=== PATIENT | female | born 2000 | race Caucasian/White ===

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

== ENCOUNTER → 2020-07-21 20:18 | Outpatient (CLI) | payer MEDICAID, SELFPAY | PROVIDERS: PCP Nurse Practitioner | DX: R63.5 Abnormal weight gain (principal); R06.83 Snoring; Z71.89 Other specified counseling | CPT/HCPCS: 95810 ==

== ENCOUNTER 2021-08-02 07:45 | Emergency (ER) | payer MEDICAID, SELFPAY ==
[2021-08-02 07:47] VITALS: BP 111/70; PULSE 116; RESP 17; TEMP 36.9; O2SAT 96; BMI 47.5
--- NOTE | 2021-08-02 09:11 | EDS_ITS ---
HPI HPI - GI History of Present Illness Chief Complaint: Nausea/Vomiting/Diarrhea Informant: patient Abdominal Pain/Flank Pain Onset: Weeks (1) Context: Gradual Onset Timing: Continuous Quality: Aching Location: Epigastric, RUQ and LUQ Worsened by: Nothing Relieved by: - (Vomiting) Nausea/Vomiting/Emesis GI Symptom: Positive for Nausea and Vomiting Onset: Weeks (1) Quality: Negative for Blood streaks, Coffee ground or Hematemesis Diarrhea/Melena/Hematochezia GI Symptom: Positive for Diarrhea Episodes: 1 Associated Symptoms Associated Symptoms: Negative for Dysuria, Frequency or Hematuria LMP: Approximately 1 week ago Narrative Narrative: Patient present with nausea and vomiting that has been constant for the past week. Patient states she is vomiting up clear and yellow emesis. Patient was r ecently admitted to [facility] where she had a gastric sleevectomy. Grandmother states that after her surgery, she had to have a repeat laparoscopy due to bleeding. She also had an endoscopy while she was there. Patient has been unable to keep anything down over the last week. Patient admits to some upper abdominal pain. Patient describes the pain as aching. Patient states pain radiates into her chest. Patient states it gets better briefly after vomiting. Patient admits to 1 episode of diarrhea over the last week. Patient denies any dysuria, hematuria, or frequency. Patient states her last menstrual period was approximately 1 week ago. [facility] Medical History (Updated 08/02/21 @ 13:[address] Jaspreet Arora, DO) Asthma GERD (gastroesophageal reflux disease) Home Medications albuterol sulfate 90 mcg/actuation aerosol inhaler (Ventolin HFA) 1 - 2 puff inhalation Q6H PRN PRN Asthma 12/06/14 [History Last Taken Unknown] Ziprasidone Hcl 20 mg PO DAILY 10/23/19 [History Last Taken Unknown] diazepam 2 mg tablet 2 mg PO TID PRN PRN Vertigo #10 tabs 10/23/19 [Rx Last Taken Unknown] escitalopram oxalate 20 mg tablet 20 mg PO DAILY 10/23/19 [History Last Taken Unknown] etonogestrel 0.12 mg-ethinyl estradiol 0.015 mg/24 hr vaginal ring 1 ea VG .[id number] 10/23/19 [History Last Taken Unknown] fluticasone propionate 50 mcg/actuation nasal spray,suspension 9.9 ml NS DAILY 10/23/19 [History Last Taken Unknown] hydroxyzine HCl 25 mg tablet 25 mg PO DAILY 10/23/19 [History Last Taken Unknown] naproxen 500 mg tablet 500 mg PO BID PRN Pain Or Fever 10/23/19 [History Last Taken Unknown] omeprazole 20 mg delayed release,disintegrating tablet 20 mg PO DAILY 10/23/19 [History Last Taken Unknown] topiramate 50 mg tablet 50 mg PO BID 10/23/19 [History Last Taken Unknown] ondansetron 4 mg disintegrating tablet 2 tab PO Q8H PRN PRN Nausea 08/02/21 [History Last Taken Unknown] promethazine 25 mg rectal suppository (Promethegan) 25 mg RECTAL Q6H PRN PRN Nausea ##6 08/02/21 [Rx Last Taken Unknown] promethazine 25 mg tablet 25 mg PO Q6H PRN PRN Nausea #10 TABLETS 08/02/21 [Rx Last Taken Unknown] Allergy/AdvReac Type Severity Reaction Status Date / Time No Known Allergies Allergy Verified 08/02/21 07:46 Surgical History Hx of gastric bypass Social History Smoking Status: Never smoker ROS ROS ED Constitutional Constitutional ED: Reports chills and subjective; Denies fever(s) Eyes Eyes: Denies blurry vision or change in vision ENT ENT ED: Denies rhinorrhea or sore throat Cardiovascular Cardiovascular: Reports chest pain; Denies palpitations Respiratory/Chest Respiratory/Chest: Reports dyspnea; Denies cough Gastrointestinal Gastrointestinal: Reports abdominal pain, diarrhea, nausea and vomiting Genitourinary Genitourinary ED: Denies dysuria or hematuria Musculoskeletal Musculoskeletal: Denies back pain or neck pain Integumentary Denies abscess or rash Neurologic Neurologic: Denies headache(s) or weakness Allergic/Immunologic Allergic/Immunologic ED: Denies mouth swelling or urticaria EXAM Physical Exam Const Vital Signs: 08/02/21 07:47 08/02/21 12:38 Temperature 98.4 F 97.3 F L Temperature Source Temporal Temporal Pulse Rate 116 H 57 L Respiratory Rate 17 16 Blood Pressure 111/70 117/63 Blood Pressure Mean 83 81 Pulse Ox 96 96 Oxygen Delivery Method Room Air Room Air Positive well nourished, well developed and obese General Appearance ED: well developed and NAD Nutritional Appearance: obese HEENT Reports moist mucous membranes Neck supple and no JVD Resp normal respiratory effort and clear to auscultation bilaterally Cardio regular rate, regular rhythm and no murmurs GI normal to inspection, nondistended, normoactive bowel sounds and non-tender Palpation: soft Extremity normal to inspection General Extremety ED: Negative for edema or tenderness General Extremity: Negative for edema Neuro oriented x3, CN's II-XII intact bilaterally and no sensory deficits noted Sensorium / Orientation: alert Motor Exam: strength 5/5 throughout Psych mental status grossly normal Skin no rashes or lesions noted MDM MDM MDM Narrative Medical decision making narrative: Patient was given IV fluids, morphine, and Zofran initially. Patient had minimal relief of her nausea with the Zofran. Patient was given a dose of Phenergan. CBC was within normal limits. Comprehensive metabolic profile shows a potassium of 2.9, CO2 of 16, and anion gap of 18. Lipase was normal. Because of the anion gap acidosis, serum lactate was ordered and was normal. Serum hCG was negative. Urinalysis does not show any evidence of urinary tract infection. CT scan of the abdomen pelvis was obtained. There is diffuse fatty infiltration of the liver. There is a 2.1 x 1.2 cm hypodense nodule in the peripheral anterior medial aspect of the spleen. This may either be posttraumatic changes versus resolving hematoma. There is no acute hemorrhage noted. Patient and family were advised of the findings. Patient is feeling better after the Phenergan. Patient was given a prescription for Phenergan. Patient was instructed to start with small amounts of fluids and advance her diet as tolerated. Patient understood and was agreeable with the plan. All questions were answered. Lab Data Attestation: I reviewed the patient's lab results. Labs: Laboratory Results - last 24 hr 08/02/21 08/02/21 08/02/21 08:30 08:30 08:30 WBC 5.4 RBC 4.88 Hgb 13.2 Hct 39.8 MCV 81.6 MCH 27.0 MCHC 33.2 RDW Std Deviation 43.8 RDW Coeff of Sharona 14.9 H Plt Count 218 MPV 12.8 H Immature Gran % (Auto) 0.400 Neut % (Auto) 79.6 H Lymph % (Auto) 12.4 L [place] % (Auto) 6.6 Eos % (Auto) 0.4 Baso % (Auto) 0.6 Absolute Neuts (auto) 4.3 Absolute Lymphs (auto) 0.67 L Nucleated RBC % 0 Sodium 138 Potassium 2.9 L Chloride 104 Carbon Dioxide 16.0 L Anion Gap 18 H BUN 7 Creatinine 0.60 Estim Creat Clear Calc 144.23 Est GFR (MDRD) Af Amer 163 Est GFR (MDRD) Non-Af 135 BUN/Creatinine Ratio 11.7 Glucose 97 Lactic Acid Calcium 9.4 Total Bilirubin 0.80 AST 29 ALT 48 Alkaline Phosphatase 74 Total Protein 7.7 Albumin 3.7 Globulin 4.0 Albumin/Globulin Ratio 0.9 Lipase 288 Serum , Qual NEGATIVE Urine Color Urine Clarity Urine pH Ur Specific [place] Urine Protein Urine Glucose (UA) Urine Ketones Urine Occult Blood Urine Nitrite Urine Bilirubin Urine Urobilinogen Ur Leukocyte Esterase Urine RBC Urine WBC Ur Squamous Epith Cells Urine Bacteria Urine Mucus 08/02/21 08/02/21 09:58 10:25 WBC RBC Hgb Hct MCV MCH MCHC RDW Std Deviation RDW Coeff of Sharona Plt Count MPV Immature Gran % (Auto) Neut % (Auto) Lymph % (Auto) [place] % (Auto) Eos % (Auto) Baso % (Auto) Absolute Neuts (auto) Absolute Lymphs (auto) Nucleated RBC % Sodium Potassium Chloride Carbon Dioxide Anion Gap BUN Creatinine Estim Creat Clear Calc Est GFR (MDRD) Af Amer Est GFR (MDRD) Non-Af BUN/Creatinine Ratio Glucose Lactic Acid 1.1 Calcium Total Bilirubin AST ALT Alkaline Phosphatase Total Protein Albumin Globulin Albumin/Globulin Ratio Lipase Serum , Qual Urine Color Yellow Urine Clarity Clear Urine pH 6.0 Ur Specific [place] 1.025 Urine Protein 30 H Urine Glucose (UA) Normal Urine Ketones 150 A* Urine Occult Blood 150 H Urine Nitrite Negative Urine Bilirubin Negative Urine Urobilinogen 4 H Ur Leukocyte Esterase 25 H Urine RBC 5-10 SEEN Urine WBC 5-10 SEEN Ur Squamous Epith Cells 0 SEEN Urine Bacteria 1+ Urine Mucus 0 SEEN Radiography Diagnostic Testing: Clinical Impression(s) from Imaging Studies Abdomen/Pelvis CT 08/02/21 09:17 IMPRESSION: The patient is status post subtotal gastrectomy. Diffuse fatty infiltration of the liver. 2.1 cm x 1.2 cm hypodense nodule in the peripheral anterior medial aspect of the spleen. This may represent either posttraumatic changes versus resolving hematoma. Electronically Signed: Gabe Phelps MD at 12:32 EDT , Discharge Plan Triage Chief Complaint: Nausea/Vomiting/Diarrhea ED Provider: Jaspreet Arora Dx/Rx/DC Orders Clinical Impression: Abdominal pain, Nausea & vomiting Instructions: ED Abdominal Pain Unkn Cause Fem, ED Vomiting (Adult) Prescriptions: New promethazine [Promethegan] 25 MG suppository 25 mg RECTAL Q6H PRN PRN (Reason: Nausea) Qty: 6 0RF promethazine [promethazine] 25 MG tablet 25 mg PO Q6H PRN PRN (Reason: Nausea) Qty: 10 0RF No Action albuterol sulfate [Ventolin HFA] 1 INHALER inhaler 1 - 2 puff inhalation Q6H PRN PRN (Reason: Asthma) hydroxyzine HCl 25 MG tablet 25 mg PO DAILY fluticasone propionate 9.9 ML spray,suspension 9.9 ml NS DAILY etonogestrel-ethinyl estradiol 1 EACH ring 1 ea VG .[id number] escitalopram oxalate 20 MG tablet 20 mg PO DAILY topiramate 50 MG tablet 50 mg PO BID omeprazole 20 MG tablet,disintegrat, delay rel 20 mg PO DAILY Ziprasidone Hcl 20 MG capsule 20 mg PO DAILY naproxen 500 MG tablet 500 mg PO BID PRN (Reason: Pain Or Fever) diazepam 2 MG tablet 2 mg PO TID PRN PRN (Reason: Vertigo) Qty: 10 0RF ondansetron 4 mg tablet,disintegrating 2 tab PO Q8H PRN PRN (Reason: Nausea) Primary Care Provider: Care Physician,No Primary Referrals: Care Physician,No Primary [Primary Care Provider] - Doctor,Your [STAFF PHYSICIAN] - 3-5 Days Disposition Disposition: Home, Self Care
--- NOTE | 2021-08-02 09:17 | CT_ITS ---
STUDY: CT ABDOMEN AND PELVIS WITH CONTRAST REASON FOR EXAM: Female, 21 years old. Abdominal pain -- IV PO Contrast. Recent gastric sleeve. Patient is not able to eat. Vomiting. RADIATION DOSAGE (If Supplied By Facility): CTDIvol = ( 17.07 ) mGy, DLP = ( 1342.79 ) mGycm TECHNIQUE: Transaxial images were obtained from the dome of the diaphragm to the symphysis pubis without oral contrast. Oral and amp; IV Gastrografin and amp; 100mL Isovue-300 was administered. Sagittal and coronal images were reconstructed. Individualized dose optimization techniques were used for this CT. COMPARISON: None. FINDINGS: The visualized lung bases are unremarkable. The visualized portions of the heart are within normal limits. There is decreased attenuation of the liver consistent with steatosis. Normal gallbladder and extrahepatic biliary system. Borderline splenomegaly. There is a 2.1 cm x 1.2 cm hypodense nodule in the peripheral anterior medial aspect of the spleen. This may represent either an old injury or resolving hematoma. Normal pancreas. Normal bilateral adrenal glands. Normal right kidney. Normal left kidney. The patient is status post subtotal gastrectomy. Postoperative changes are seen. Normal small intestine. There are scattered colonic diverticula consistent with diverticulosis. There is a moderate amount of fecal material in the colon. There is non-visualization of the appendix. Normal abdominal aorta. Normal inferior vena cava. Normal retroperitoneum. Normal urinary bladder. Normal abdominal wall. Normal osseous structures. CT/Abdomen/Pelvis WITH Contrast IMPRESSION: The patient is status post subtotal gastrectomy. Diffuse fatty infiltration of the liver. 2.1 cm x 1.2 cm hypodense nodule in the peripheral anterior medial aspect of the spleen. This may represent either posttraumatic changes versus resolving hematoma. Electronically Signed: Gabe Phelps MD at 12:32 EDT ,
[2021-08-02] MEDS: Ondansetron 4 MG/2 ML Vial IV (09:37)
[2021-08-02] MEDS: Morphine 4 MG/ML Syringe IV (09:37)
[2021-08-02] MEDS: 0.9% Normal Saline 1,000 ML 1000 ML IV (09:37)
[2021-08-02 09:52] LABS: Absolute Lymphocyte Count 0.67 X10^3/uL (0.83-4.51); Absolute Neutrophil Count 4.3 X10^3/uL (2.0-7.7); Basophil# 0.03 X10^3/uL; Basophil% 0.6 % (0-1); Eosinophil# 0.02 X10^3/uL; Eosinophils% 0.4 % (0-5); Hematocrit 39.8 % (37-47); Hemoglobin 13.2 g/dL (12.0-15.0); Lymphocyte # 0.67 X10^3/ul (0.83-4.51); Lymphocyte % 12.4 % (19-41); Mean Corp Hgb Conc 33.2 g/dL (32-36); Mean Corpuscular Volume 81.6 fL (81-99); Mean Platelet Vol. 12.8 fl (6.2-12.0); Monocyte# 0.36 X10^3/uL; Monocyte% 6.6 % (0-10); NRBC Flagged by Analyzer 0 % (0-5); Neutrophil # 4.32 X10^3/uL (2.7-7.7); Neutrophil % 79.6 % (47-70); Platelet Count 218 K/mm3 (150-450); RBC Distribution Width CV 14.9 % (11.6-14.6); RBC Distribution Width SD 43.8 fl (35.1-43.9); Red Blood Count 4.88 M/mm3 (4.2-5.4); White Blood Count 5.4 K/mm3 (4.4-11.0)
[2021-08-02 10:03] LABS: Mucous, Urine 0 SEEN /hpf (<or=2+); Squamous Epithelial Cells - UA 0 SEEN /hpf (5-10)
[2021-08-02 10:04] LABS: Glucose, Dipstick Normal (Normal); Leukocyte Esterase-Dipstick 25 /ul (Negative); Nitrite-Dipstick Negative (Negative); Occult Blood-Urine 150 /ul (Negative); Protein-Dipstick 30 mg/dl (Negative); Specific Gravity, Urine 1.025 (1.002-1.030); Urine Bilirubin Dipstick Negative (Negative); Urine Clarity Clear (Clear); Urine Urobilinogen 4 mg/dl (Normal)
[2021-08-02 10:06] LABS: Ketone-Dipstick 150 mg/dl (Negative)
[2021-08-02 10:07] LABS: Internal QC Validated? YES +Cl - CLEAR BKGD; Pregnancy, Serum, hCG Quali. NEGATIVE Negative
[2021-08-02 10:07] LABS: Color, Urine Yellow (Yellow)
[2021-08-02 10:09] LABS: Bacteria 1+ /hpf (None Seen); Red Blood Cells-Urine 5-10 SEEN /hpf (0-5); White Blood Cells 5-10 SEEN /hpf (0-5)
[2021-08-02 10:11] LABS: ALB/GLOB Ratio 0.9 RATIO (0.9-2.4); AST(SGOT) 29 U/L (15-37); Alanine Aminotransfer ALT/SGPT 48 U/L (13-56); Albumin, Serum 3.7 g/dL (3.2-5.0); Alkaline Phosphatase 74 U/L (45-117); Anion Gap 18 (5-15); BUN 7 mg/dL (7-18); BUN/Creat Ratio 11.7 RATIO (10-20); Calcium,Total 9.4 mg/dL (8.5-10.1); Chloride 104 mmol/L (98-107); EST Glomerular Filtration Rate 135 mL/min (>60); Est Glom Filt Rate - Afr Amer 163 mL/min (>60); Estimated Creatinine Clearance 144.23 ml/min; Glucose 97 mg/dL (74-106); Lipase 288 U/L (73-393); Potassium 2.9 mmol/L (3.5-5.1); Protein, Total 7.7 g/dL (6.4-8.2); Sodium Level 138 mmol/L (136-145)
[2021-08-02] MEDS: proMETHazine 25 MG/ML Syringe 6.25 MG IM (10:41)
[2021-08-02 11:10] LABS: Lactic Acid 1.1 mmol/L (0.4-1.9)
[2021-08-02 12:38] VITALS: BP 117/63; PULSE 57; RESP 16; TEMP 36.3; O2SAT 96
[2021-08-02] MEDS: Potassium Chloride Oral Tablet 20 MEQ 40 MEQ PO (13:55)
--- NOTE | 2021-08-02 14:12 | ED.RN ---
disolved K+ in juice d/t pt unable to take large pills.
== END 2021-08-02 14:11 | disposition home or self-care (01) ==
PROVIDERS: Emergency Provider Emergency Medicine; Visit Provider Emergency Medicine
DX: R11.2 Nausea with vomiting, unspecified (principal); Z68.42 Body mass index [BMI] 45.0-49.9, adult; K76.0 Fatty (change of) liver, not elsewhere classified; R19.7 Diarrhea, unspecified; K21.9 Gastro-esophageal reflux disease without esophagitis; J45.909 Unspecified asthma, uncomplicated; Z98.84 Bariatric surgery status; E66.9 Obesity, unspecified; D73.89 Other diseases of spleen; R10.10 Upper abdominal pain, unspecified
CPT/HCPCS: 74177; 80053; 81001; 83605; 83690; 84703; 85025; 96361; 96372; 96374; 96375; 99284; J7030; Q9967; A4216; J2405

== ENCOUNTER 2021-08-05 20:29 | Emergency (ER) | payer MEDICAID, SELFPAY ==
[2021-08-05 20:29] VITALS: BP 164/88; PULSE 117; RESP 16; TEMP 36.6; O2SAT 100; BMI 47.0
[2021-08-05] MEDS: 0.9% Normal Saline 1,000 ML 1000 ML IV (20:55)
[2021-08-05] MEDS: Metoclopramide 10 MG/2 ML Vial IV (20:56)
[2021-08-05] MEDS: DiphenhydrAMINE 50 MG/ML Syringe 25 MG IV (20:57)
--- NOTE | 2021-08-05 20:57 | ED.VIS.GI ---
HPI HPI - GI History of Present Illness Chief Complaint: Nausea/Vomiting/Diarrhea Detail of Chief Complaint: Nausea and vomiting for 2 weeks Informant: patient and parent Abdominal Pain/Flank Pain Onset: Weeks (2 weeks) Context: Sudden Onset Timing: Continuous (Abdominal pain has been continuous) Quality: Aching and Burning Location: Epigastric Current Severity: Mild Maximum Severity: Severe Worsened by: Food (Solid or liquid) Relieved by: Nothing; Not Relieved By Antacids or Food Nausea/Vomiting/Emesis GI Symptom: Positive for Nausea and Vomiting (States she vomits every 1/2 hour to 1 hour.) Onset: Weeks (2 weeks) Quality: Positive for Nonbilious; Negative for Blood streaks, Coffee ground or Hematemesis Severity: Severe Diarrhea/Melena/Hematochezia GI Symptom: Positive for Diarrhea; Negative for Melena or Hematochezia Onset: Weeks (Approximately 2 weeks) Stool Quality: Positive for Mucous Severity: Moderate Associated Symptoms Associated Symptoms: Positive for - (Dark and decreased urine output); Negative for Dysuria, Frequency, Hematuria or Urgency Narrative Narrative: 21Patient is a-year-old female who had a sleeve procedure done. She had postop complications due to pneumoperitoneum requiring emergent surgery. She was subsequently discharged to home once stable. She developed nausea and vomiting. She was admitted on the and discharged on the at [facility] where she had the original procedure. Since she has been home she has been vomiting quite frequently and is also had mushy stool with mucus. There is no family history of ulcerative colitis or Crohn's. Patient does have a history of irritable bowel syndrome. The doctors at [facility] thinks she is having an adverse reaction to the surgery and sleeve. [facility] Medical History Asthma GERD (gastroesophageal reflux disease) Home Medications albuterol sulfate 90 mcg/actuation aerosol inhaler (Ventolin HFA) 1 - 2 puff inhalation Q6H PRN PRN Asthma 12/06/14 [History Last Taken Unknown] Ziprasidone Hcl 20 mg PO DAILY 10/23/19 [History Last Taken Unknown] diazepam 2 mg tablet 2 mg PO TID PRN PRN Vertigo #10 tabs 10/23/19 [Rx Last Taken Unknown] escitalopram oxalate 20 mg tablet 20 mg PO DAILY 10/23/19 [History Last Taken Unknown] etonogestrel 0.12 mg-ethinyl estradiol 0.015 mg/24 hr vaginal ring 1 ea VG .[id number] 10/23/19 [History Last Taken Unknown] fluticasone propionate 50 mcg/actuation nasal spray,suspension 9.9 ml NS DAILY 10/23/19 [History Last Taken Unknown] hydroxyzine HCl 25 mg tablet 25 mg PO DAILY 10/23/19 [History Last Taken Unknown] naproxen 500 mg tablet 500 mg PO BID PRN Pain Or Fever 10/23/19 [History Last Taken Unknown] omeprazole 20 mg delayed release,disintegrating tablet 20 mg PO DAILY 10/23/19 [History Last Taken Unknown] topiramate 50 mg tablet 50 mg PO BID 10/23/19 [History Last Taken Unknown] ondansetron 4 mg disintegrating tablet 2 tab PO Q8H PRN PRN Nausea 08/02/21 [History Last Taken Unknown] promethazine 25 mg rectal suppository (Promethegan) 25 mg RECTAL Q6H PRN PRN Nausea ##6 08/02/21 [Rx Last Taken Unknown] promethazine 25 mg tablet 25 mg PO Q6H PRN PRN Nausea #10 TABLETS 08/02/21 [Rx Last Taken Unknown] hydrocodone-acetaminophen 5-325mg 5mg-325mg 1 tab PO Q6H PRN PRN Pain 3 days #12 TABLETS 08/05/21 [Rx Last Taken Unknown] metoclopramide HCl 10 mg tablet (Reglan) 10 mg PO Q6H PRN nausea and vomiting #20 tabs 08/05/21 [Rx Last Taken Unknown] Allergy/AdvReac Type Severity Reaction Status Date / Time No Known Allergies Allergy Verified 08/05/21 20:31 Surgical History Hx of gastric bypass Social History (Updated 08/05/21 @ 21:[address] Trevor Bravo MD) household members: significant other Smoking Status: Never smoker substance use type: does not use ROS ROS ED Constitutional Constitutional ED: Reports weight loss; Denies chills, fever(s), subjective or sweats ENT ENT ED: Denies ear pain, rhinorrhea or sore throat Cardiovascular Cardiovascular: Denies chest pain, orthopnea or palpitations Respiratory/Chest Respiratory/Chest: Denies cough, dyspnea, dyspnea on exertion or orthopnea Gastrointestinal Gastrointestinal: Reports abdominal pain, diarrhea, nausea and vomiting; Denies constipation or melena Genitourinary Genitourinary ED: Reports other Details: Decreased urine output and darker colored urine ; Denies dysuria, hematuria or urinary frequency Musculoskeletal Musculoskeletal: Denies arthralgias, back pain, myalgias or neck pain Integumentary Denies abscess, Abrasions or rash Neurologic Neurologic: Denies headache(s), paresthesias or weakness Psychiatric Psychiatric: Reports anxiety Endocrine Endocrinology: Denies polydipsia, polyphagia or polyuria Hematologic/Lymphatic Hematologic/Lymphatic: Denies easy bleeding, easy bruising or lymphadenopathy EXAM Physical Exam Const Vital Signs: 08/05/21 20:29 Temperature 97.8 F Temperature Source Temporal Pulse Rate 117 H Respiratory Rate 16 Blood Pressure 164/88 H Blood Pressure Mean 113 Pulse Ox 100 Oxygen Delivery Method Room Air Positive well nourished, well developed and obese Constitutional Narrative: Patient is peers ill but not toxic. General Appearance ED: well developed; Negative for NAD or pallor Nutritional Appearance: obese HEENT Reports TM's clear and dry mucous membranes HEENT Narrative: Nares patent. normocephalic and atraumatic Tympanic Membrane ED: Yes TM's clear Mouth ED: Yes dry mucous membranes Mouth: dry mucous membranes Eyes PERRL and EOMs intact bilaterally Eyes Narrative: Sclera is anicteric. General Eye ED: Negative for pale conjunctiva Neck no lymphadenopathy, supple and no JVD Resp normal respiratory effort and clear to auscultation bilaterally Cardio regular rhythm, S1 normal heart sound, S2 normal heart sound and no murmurs Rate: tachycardic GI non-distended and no masses; Negative for non-tender Inspection: Negative for abdominal distention Auscultation: hypoactive bowel sounds Palpation: soft and tender epigastric; Negative for guarding, rigid, hepatomegaly or splenomegaly Narrative: Negative clinical Leyva sign Back/Spine no CVA tenderness Cervical Spine: cervical spine tenderness Thoracic Spine / Upper Back: thoracic spinal tenderness Lumbar Spine / Lower Back: lumbar spinal tenderness Neuro CN's II-XII intact bilaterally, moves all extremities and no sensory deficits noted Sensorium / Orientation: alert Motor Exam: strength 5/5 throughout Psych Psych Narrative: Mood is flat. She is soft-spoken. Speaks slowly. Skin no wounds Skin Narrative: Port sites are healing without evidence of infection General Skin Exam: Negative for jaundice or pallor Lesions: no lesions Rashes: no rashes MDM MDM MDM Narrative Medical decision making narrative: Patient presents with persistent nausea vomiting diarrhea. Will obtain electrolyte panel to assess electrolytes, CO2 anion gap and renal function. Because she has history of GI bleed and has been anemic requiring transfusion will obtain CBC to assess H&H as well as white count. Lab Data Attestation: I reviewed the patient's lab results. Lab results narrative: CBC is unremarkable. Comprehensive metabolic panel reveals an anion gap acidosis. Potassium is 3.0 which is due to her diarrhea. AST and ALT are slightly elevated 46 and 86 respectively. Since patient is probably ketotic contributing to her abdominal pain D5 half-normal was ordered.. Labs: Laboratory Results - last 24 hr 08/05/21 08/05/21 21:00 21:00 WBC 6.1 RBC 5.17 Hgb 13.9 Hct 42.1 MCV 81.4 MCH 26.9 L MCHC 33.0 RDW Std Deviation 42.5 RDW Coeff of Sharona 14.6 Plt Count 233 MPV 12.0 Immature Gran % (Auto) 0.200 Neut % (Auto) 78.6 H Lymph % (Auto) 12.8 L [place] % (Auto) 7.4 Eos % (Auto) 0.3 Baso % (Auto) 0.7 Absolute Neuts (auto) 4.8 Absolute Lymphs (auto) 0.78 L Nucleated RBC % 0 Sodium 134 L Potassium 3.0 L Chloride 100 Carbon Dioxide 17.0 L Anion Gap 17 H BUN 7 Creatinine 0.67 Estim Creat Clear Calc 129.16 Est GFR (MDRD) Af Amer 142 Est GFR (MDRD) Non-Af 117 BUN/Creatinine Ratio 10.4 Glucose 95 Calcium 9.9 Total Bilirubin 1.10 H AST 46 H ALT 86 H Alkaline Phosphatase 88 Total Protein 8.3 H Albumin 4.1 Globulin 4.2 Albumin/Globulin Ratio 1.0 Discharge Plan Triage Chief Complaint: Nausea/Vomiting/Diarrhea ED Provider: Trevor Bravo Dx/Rx/DC Orders Clinical Impression: Nausea & vomiting, Abdominal pain Instructions: ED Vomiting (Adult) Prescriptions: New metoclopramide HCl [Reglan] 10 mg tablet 10 mg PO Q6H PRN (Reason: nausea and vomiting) Qty: 20 0RF hydrocodone-acetaminophen [hydrocodone-acetaminophen] 5-325 mg tablet 1 tab PO Q6H PRN PRN (Reason: Pain) 3 Days Qty: 12 0RF No Action albuterol sulfate [Ventolin HFA] 1 INHALER inhaler 1 - 2 puff inhalation Q6H PRN PRN (Reason: Asthma) hydroxyzine HCl 25 MG tablet 25 mg PO DAILY fluticasone propionate 9.9 ML spray,suspension 9.9 ml NS DAILY etonogestrel-ethinyl estradiol 1 EACH ring 1 ea VG .[id number] escitalopram oxalate 20 MG tablet 20 mg PO DAILY topiramate 50 MG tablet 50 mg PO BID omeprazole 20 MG tablet,disintegrat, delay rel 20 mg PO DAILY Ziprasidone Hcl 20 MG capsule 20 mg PO DAILY naproxen 500 MG tablet 500 mg PO BID PRN (Reason: Pain Or Fever) diazepam 2 MG tablet 2 mg PO TID PRN PRN (Reason: Vertigo) Qty: 10 0RF ondansetron 4 mg tablet,disintegrating 2 tab PO Q8H PRN PRN (Reason: Nausea) promethazine [Promethegan] 25 MG suppository 25 mg RECTAL Q6H PRN PRN (Reason: Nausea) Qty: 6 0RF promethazine [promethazine] 25 MG tablet 25 mg PO Q6H PRN PRN (Reason: Nausea) Qty: 10 0RF Primary Care Provider: Care Physician,No Primary Referrals: Care Physician,No Primary [Primary Care Provider] - Activity Restrictions/Additional Instructions: You need to call your doctor in the morning and let them know that you continue to feel poorly and vomit. Disposition Disposition: Home, Self Care Discharge Date/Time: 08/06/21 00:37
[2021-08-05 21:05] LABS: Absolute Lymphocyte Count 0.78 X10^3/uL (0.83-4.51); Absolute Neutrophil Count 4.8 X10^3/uL (2.0-7.7); Basophil# 0.04 X10^3/uL; Basophil% 0.7 % (0-1); Eosinophil# 0.02 X10^3/uL; Eosinophils% 0.3 % (0-5); Hematocrit 42.1 % (37-47); Hemoglobin 13.9 g/dL (12.0-15.0); Lymphocyte # 0.78 X10^3/ul (0.83-4.51); Lymphocyte % 12.8 % (19-41); Mean Corpuscular Hgb 26.9 pg (27.0-32.0); Mean Corpuscular Volume 81.4 fL (81-99); Monocyte# 0.45 X10^3/uL; Monocyte% 7.4 % (0-10); NRBC Flagged by Analyzer 0 % (0-5); Neutrophil # 4.79 X10^3/uL (2.7-7.7); Neutrophil % 78.6 % (47-70); Platelet Count 233 K/mm3 (150-450); RBC Distribution Width CV 14.6 % (11.6-14.6); RBC Distribution Width SD 42.5 fl (35.1-43.9); Red Blood Count 5.17 M/mm3 (4.2-5.4); White Blood Count 6.1 K/mm3 (4.4-11.0)
[2021-08-05 21:25] LABS: AST(SGOT) 46 U/L (15-37); Alanine Aminotransfer ALT/SGPT 86 U/L (13-56); Albumin, Serum 4.1 g/dL (3.2-5.0); Alkaline Phosphatase 88 U/L (45-117); Anion Gap 17 (5-15); BUN 7 mg/dL (7-18); BUN/Creat Ratio 10.4 RATIO (10-20); Calcium,Total 9.9 mg/dL (8.5-10.1); Chloride 100 mmol/L (98-107); Creatinine, Serum 0.67 mg/dL (0.55-1.02); EST Glomerular Filtration Rate 117 mL/min (>60); Est Glom Filt Rate - Afr Amer 142 mL/min (>60); Estimated Creatinine Clearance 129.16 ml/min; Globulin 4.2 g/dL (2.2-4.2); Glucose 95 mg/dL (74-106); Protein, Total 8.3 g/dL (6.4-8.2); Sodium Level 134 mmol/L (136-145)
[2021-08-05] MEDS: Dext 5%-0.45% NS 1,000 ML 999 ML IV (22:14)
[2021-08-05 22:29] VITALS: BP 140/60; PULSE 98; RESP 18
[2021-08-06] MEDS: Ketorolac 30 MG/ML Syringe IV (00:07)
== END 2021-08-06 00:37 | disposition home or self-care (01) ==
PROVIDERS: Emergency Provider Emergency Medicine; Visit Provider Emergency Medicine
DX: R11.2 Nausea with vomiting, unspecified (principal); Z68.42 Body mass index [BMI] 45.0-49.9, adult; R10.9 Unspecified abdominal pain; D64.9 Anemia, unspecified; R19.7 Diarrhea, unspecified; K21.9 Gastro-esophageal reflux disease without esophagitis; J45.909 Unspecified asthma, uncomplicated; Z79.899 Other long term (current) drug therapy; K58.9 Irritable bowel syndrome, unspecified; Z98.84 Bariatric surgery status; E66.9 Obesity, unspecified
CPT/HCPCS: 80053; 85025; 96361; 96365; 96366; 96375; 99282; J7030; A4216; J7799

== ENCOUNTER 2022-04-22 06:12 | Emergency (ER) | payer MEDICAID, SELFPAY ==
[2022-04-22 06:13] VITALS: BP 125/82; PULSE 93; RESP 14; TEMP 36.6; O2SAT 100; BMI 39.4
--- NOTE | 2022-04-22 06:28 | CT_ITS ---
HISTORY: Mid abdomen pain, gastric bypass 06/25/2021. TECHNIQUE: Helically acquired images were obtained of the abdomen and pelvis after the intravenous administration of 100 mL Isovue-370 . Oral Gastrografin also administered. A radiation dose optimization technique was used for this scan. 457 images. COMPARISON: 08/02/2021. FINDINGS: LOWER CHEST: Lung bases clear. BOWEL: Gastric postoperative change. Bowel including appendix nondilated. No focal pericolonic inflammatory change observed. PERITONEUM: No significant ascites. LIVER: No enhancing mass. GALLBLADDER/BILIARY TREE: Gallbladder present. SPLEEN: Small peripheral splenic hypodensity again seen, possible old infarct. PANCREAS/KIDNEYS/ADRENAL GLANDS: Unremarkable. VESSELS: Abdominal aorta nondilated. PELVIC ORGANS: 3.4 x 3.7 cm left ovarian cyst. BONES: Intact. CT/Abdomen/Pelvis WITH Contrast IMPRESSION: No acute abnormality identified. Gastric postoperative change. Stable small splenic lesion. Small left ovarian cyst. Electronically Signed: Fani Rasmussen MD at 8:23 EDT ,
--- NOTE | 2022-04-22 06:29 | EDS_ITS ---
HPI HPI - GI History of Present Illness Chief Complaint: Abd Pain Detail of Chief Complaint: Abdominal pain Informant: patient Narrative Narrative: Patient presents to the emergency department with abdominal pain that she has had off and on for months. Patient gives history of a gastric sleeve surgery in June 2021. Patient for last several months has had intermittent pains in the right upper quadrant as well is the left lower quadrant at times. Initially the pain would last 10 to 15 minutes but it seems like the pain is lasting longer longer. Patient had recent ultrasound of the gallbladder that was normal in March at [facility] per family members. Patient also has been seen by wildlife biology technician. It was thought that she may have irritable bowel syndrome. Patient has lost about 120 pounds since her surgery. Pain typically comes on about 2 hours after eating. Patient states that she ate biscuits and gravy this morning and about 2 hours later started having pain. Currently her pain is resolved. She had no fever. She denies vomiting or diarrhea. Patient denies urinary symptoms. [facility] Medical History Asthma GERD (gastroesophageal reflux disease) Home Medications albuterol sulfate 90 mcg/actuation aerosol inhaler (Ventolin HFA) 1 - 2 puff inhalation Q6H PRN PRN Asthma 12/06/14 [History Last Taken Unknown] Ziprasidone Hcl 20 mg PO DAILY 10/23/19 [History Last Taken Unknown] diazepam 2 mg tablet 2 mg PO TID PRN PRN Vertigo #10 tabs 10/23/19 [Rx Last Taken Unknown] escitalopram oxalate 20 mg tablet 20 mg PO DAILY 10/23/19 [History Last Taken Unknown] etonogestrel 0.12 mg-ethinyl estradiol 0.015 mg/24 hr vaginal ring 1 ea VG .[id number] 10/23/19 [History Last Taken Unknown] fluticasone propionate 50 mcg/actuation nasal spray,suspension 9.9 ml NS DAILY 10/23/19 [History Last Taken Unknown] hydroxyzine HCl 25 mg tablet 25 mg PO DAILY 10/23/19 [History Last Taken Unknown] naproxen 500 mg tablet 500 mg PO BID PRN Pain Or Fever 10/23/19 [History Last Taken Unknown] omeprazole 20 mg delayed release,disintegrating tablet 20 mg PO DAILY 10/23/19 [History Last Taken Unknown] topiramate 50 mg tablet 50 mg PO BID 10/23/19 [History Last Taken Unknown] ondansetron 4 mg disintegrating tablet 2 tab PO Q8H PRN PRN Nausea 08/02/21 [History Last Taken Unknown] promethazine 25 mg rectal suppository (Promethegan) 25 mg RECTAL Q6H PRN PRN Nausea ##6 08/02/21 [Rx Last Taken Unknown] promethazine 25 mg tablet 25 mg PO Q6H PRN PRN Nausea #10 TABLETS 08/02/21 [Rx Last Taken Unknown] hydrocodone-acetaminophen 5-325mg 5mg-325mg 1 tab PO Q6H PRN PRN Pain 3 days #12 TABLETS 08/05/21 [Rx Last Taken Unknown] metoclopramide HCl 10 mg tablet (Reglan) 10 mg PO Q6H PRN nausea and vomiting #20 tabs 08/05/21 [Rx Last Taken Unknown] Allergy/AdvReac Type Severity Reaction Status Date / Time No Known Allergies Allergy Verified 04/22/22 06:18 Surgical History Hx of gastric bypass Social History (Updated 08/05/21 @ 21:[address] Trevor Bravo MD) household members: significant other Smoking Status: Never smoker substance use type: does not use ROS ROS ED Review of Systems ROS Unobtainable: other Constitutional Constitutional ED: Reports lethargy; Denies chills, fever(s), sweats or weight loss Eyes Eyes: Denies blurry vision, change in vision or diplopia ENT ENT ED: Denies rhinorrhea or sore throat Cardiovascular Cardiovascular: Denies chest pain, orthopnea or racing heartbeat Respiratory/Chest Respiratory/Chest: Denies cough, dyspnea, dyspnea on exertion, orthopnea or sputum Gastrointestinal Gastrointestinal: Reports abdominal pain; Denies diarrhea, nausea or vomiting Genitourinary Genitourinary ED: Denies dysuria, hematuria or urinary frequency Musculoskeletal Musculoskeletal: Denies arthralgias, back pain, myalgias or neck pain Integumentary Denies abscess, Abrasions or rash Neurologic Neurologic: Denies headache(s) or weakness Psychiatric Psychiatric: Denies anxiety, depression or suicidal thoughts Endocrine Endocrinology: Denies polydipsia, polyphagia or polyuria Hematologic/Lymphatic Hematologic/Lymphatic: Denies easy bleeding, easy bruising or lymphadenopathy Allergic/Immunologic Allergic/Immunologic ED: Denies mouth swelling, tongue swelling or urticaria EXAM Physical Exam Const Vital Signs: 04/22/22 06:13 Temperature 97.8 F Temperature Source Temporal Pulse Rate 93 Respiratory Rate 14 Blood Pressure 125/82 H Blood Pressure Mean 96 Pulse Ox 100 Oxygen Delivery Method Room Air Positive well nourished and well developed General Appearance ED: well developed and NAD HEENT Reports TM's clear and moist mucous membranes normocephalic and atraumatic; Negative for trauma or tenderness Tympanic Membrane ED: Yes TM's clear Eyes PERRL and EOMs intact bilaterally General Eye ED: Negative for pale conjunctiva or scleral icterus Neck no lymphadenopathy, supple and no JVD General: Negative for tenderness Chest Wall inspection of chest normal and palpation of chest normal Chest: Negative for tenderness Resp normal respiratory effort and clear to auscultation bilaterally Effort and Inspection: Negative for respiratory distress or pain with movement Auscultation: Negative for rhonchi, wheezes or diminished lung sounds Cardio regular rate, regular rhythm, S1 normal heart sound, S2 normal heart sound and no murmurs Peripheral Pulses: pulses 2+ throughout GI normal to inspection, nondistended, normoactive bowel sounds, soft to palpation, non-tender, non-distended and no masses GI Narrative: Patient morbidly obese. No significant tenderness on exam. There is no rebound, rigidity, or peritoneal signs. Back/Spine no CVA tenderness and no thoracic nor lumbar tenderness Extremity normal to inspection General Extremety ED: Negative for edema General Extremity: Negative for edema Neuro oriented x3, CN's II-XII intact bilaterally, no sensory deficits noted and gait normal Sensorium / Orientation: awake, alert, oriented to person, oriented to place and oriented to time Motor Exam: strength 5/5 throughout and strength abnormal Psych mental status grossly normal Skin no rashes or lesions noted and no wounds MDM MDM MDM Narrative Medical decision making narrative: IV line established on arrival. Patient did not require anything for pain. CBC with differential obtained was normal. Chemistries were normal and LFTs were normal. Lipase normal. hCG was negative. CT scan of the abdomen pelvis was ordered to evaluate further as etiology of her abdominal pain is unclear. Care of patient turned over to morning physician awaiting results and final disposition. Lab Data Labs: Laboratory Results - last 24 hr 04/22/22 04/22/22 04/22/22 06:25 06:25 06:38 WBC 6.2 RBC 4.32 Hgb 11.6 L Hct 37.0 MCV 85.6 MCH 26.9 L MCHC 31.4 L RDW Std Deviation 40.5 RDW Coeff of Sharona 13.0 Plt Count 205 MPV 11.7 Immature Gran % (Auto) 0.500 Neut % (Auto) 72.5 H Lymph % (Auto) 21.5 [place] % (Auto) 3.9 Eos % (Auto) 0.8 Baso % (Auto) 0.8 Absolute Neuts (auto) 4.5 Absolute Lymphs (auto) 1.33 Nucleated RBC % 0 Sodium 142 Potassium 3.5 Chloride 112 H Carbon Dioxide 23.0 Anion Gap 7 BUN 12 Creatinine 0.58 Estim Creat Clear Calc 147.95 Est GFR (MDRD) Af Amer 166 Est GFR (MDRD) Non-Af 137 BUN/Creatinine Ratio 20.5 H Glucose 107 H Calcium 9.2 Total Bilirubin 0.50 AST 11 L ALT 18 Alkaline Phosphatase 63 Total Protein 6.9 Albumin 3.7 Globulin 3.2 Albumin/Globulin Ratio 1.2 Lipase 99 Serum , Qual NEGATIVE Urine Color Urine Clarity Urine pH Ur Specific [place] Urine Protein Urine Glucose (UA) Urine Ketones Urine Occult Blood Urine Nitrite Urine Bilirubin Urine Urobilinogen Ur Leukocyte Esterase Urine RBC Urine WBC Ur Squamous Epith Cells Urine Bacteria Urine Mucus 04/22/22 06:48 WBC RBC Hgb Hct MCV MCH MCHC RDW Std Deviation RDW Coeff of Sharona Plt Count MPV Immature Gran % (Auto) Neut % (Auto) Lymph % (Auto) [place] % (Auto) Eos % (Auto) Baso % (Auto) Absolute Neuts (auto) Absolute Lymphs (auto) Nucleated RBC % Sodium Potassium Chloride Carbon Dioxide Anion Gap BUN Creatinine Estim Creat Clear Calc Est GFR (MDRD) Af Amer Est GFR (MDRD) Non-Af BUN/Creatinine Ratio Glucose Calcium Total Bilirubin AST ALT Alkaline Phosphatase Total Protein Albumin Globulin Albumin/Globulin Ratio Lipase Serum , Qual Urine Color Yellow Urine Clarity Sl. Cloudy Urine pH 6.0 Ur Specific [place] 1.025 Urine Protein Negative Urine Glucose (UA) Normal Urine Ketones Negative Urine Occult Blood Negative Urine Nitrite Negative Urine Bilirubin Negative Urine Urobilinogen 4 H Ur Leukocyte Esterase 25 H Urine RBC 0 SEEN Urine WBC 0-5 SEEN Ur Squamous Epith Cells 25-50 SEEN Urine Bacteria 4+ Urine Mucus 2+ Discharge Plan Triage Chief Complaint: Abd Pain ED Provider: Nadir Raphael Dx/Rx/DC Orders Clinical Impression: Abdominal pain Prescriptions: No Action albuterol sulfate [Ventolin HFA] 1 INHALER inhaler 1 - 2 puff inhalation Q6H PRN PRN (Reason: Asthma) hydroxyzine HCl 25 MG tablet 25 mg PO DAILY fluticasone propionate 9.9 ML spray,suspension 9.9 ml NS DAILY etonogestrel-ethinyl estradiol 1 EACH ring 1 ea VG .[id number] escitalopram oxalate 20 MG tablet 20 mg PO DAILY topiramate 50 MG tablet 50 mg PO BID omeprazole 20 MG tablet,disintegrat, delay rel 20 mg PO DAILY Ziprasidone Hcl 20 MG capsule 20 mg PO DAILY naproxen 500 MG tablet 500 mg PO BID PRN (Reason: Pain Or Fever) diazepam 2 MG tablet 2 mg PO TID PRN PRN (Reason: Vertigo) Qty: 10 0RF ondansetron 4 mg tablet,disintegrating 2 tab PO Q8H PRN PRN (Reason: Nausea) promethazine [Promethegan] 25 MG suppository 25 mg RECTAL Q6H PRN PRN (Reason: Nausea) Qty: 6 0RF promethazine [promethazine] 25 MG tablet 25 mg PO Q6H PRN PRN (Reason: Nausea) Qty: 10 0RF metoclopramide HCl [Reglan] 10 mg tablet 10 mg PO Q6H PRN (Reason: nausea and vomiting) Qty: 20 0RF hydrocodone-acetaminophen [hydrocodone-acetaminophen] 5-325 mg tablet 1 tab PO Q6H PRN PRN (Reason: Pain) 3 Days Qty: 12 0RF Primary Care Provider: Care Physician,No Primary Referrals: Care Physician,No Primary [Primary Care Provider] -
[2022-04-22 06:35] LABS: Absolute Lymphocyte Count 1.33 X10^3/uL (0.83-4.51); Absolute Neutrophil Count 4.5 X10^3/uL (2.0-7.7); Basophil# 0.05 X10^3/uL; Basophil% 0.8 % (0-1); Eosinophil# 0.05 X10^3/uL; Eosinophils% 0.8 % (0-5); Hemoglobin 11.6 g/dL (12.0-15.0); Lymphocyte # 1.33 X10^3/ul (0.83-4.51); Lymphocyte % 21.5 % (19-41); Mean Corp Hgb Conc 31.4 g/dL (32-36); Mean Corpuscular Hgb 26.9 pg (27.0-32.0); Mean Corpuscular Volume 85.6 fL (81-99); Mean Platelet Vol. 11.7 fl (6.2-12.0); Monocyte# 0.24 X10^3/uL; Monocyte% 3.9 % (0-10); NRBC Flagged by Analyzer 0 % (0-5); Neutrophil % 72.5 % (47-70); Platelet Count 205 K/mm3 (150-450); RBC Distribution Width SD 40.5 fl (35.1-43.9); Red Blood Count 4.32 M/mm3 (4.2-5.4); White Blood Count 6.2 K/mm3 (4.4-11.0)
[2022-04-22 06:51] LABS: ALB/GLOB Ratio 1.2 RATIO (0.9-2.4); AST(SGOT) 11 U/L (15-37); Alanine Aminotransfer ALT/SGPT 18 U/L (13-56); Albumin, Serum 3.7 g/dL (3.2-5.0); Alkaline Phosphatase 63 U/L (45-117); Anion Gap 7 (5-15); BUN 12 mg/dL (7-18); BUN/Creat Ratio 20.5 RATIO (10-20); Calcium,Total 9.2 mg/dL (8.5-10.1); Chloride 112 mmol/L (98-107); Creatinine, Serum 0.58 mg/dL (0.55-1.02); EST Glomerular Filtration Rate 137 mL/min (>60); Est Glom Filt Rate - Afr Amer 166 mL/min (>60); Estimated Creatinine Clearance 147.95 ml/min; Globulin 3.2 g/dL (2.2-4.2); Glucose 107 mg/dL (74-106); Lipase 99 U/L (73-393); Potassium 3.5 mmol/L (3.5-5.1); Protein, Total 6.9 g/dL (6.4-8.2); Sodium Level 142 mmol/L (136-145)
[2022-04-22 06:52] LABS: Red Blood Cells-Urine 0 SEEN /hpf (0-5)
[2022-04-22] MEDS: 0.9% Normal Saline 1,000 ML 125 ML IV (06:52)
[2022-04-22 06:53] LABS: Color, Urine Yellow (Yellow); Glucose, Dipstick Normal (Normal); Ketone-Dipstick Negative (Negative); Leukocyte Esterase-Dipstick 25 /ul (Negative); Nitrite-Dipstick Negative (Negative); Occult Blood-Urine Negative /ul (Negative); Protein-Dipstick Negative (Negative); Specific Gravity, Urine 1.025 (1.002-1.030); Urine Bilirubin Dipstick Negative (Negative); Urine Clarity Sl. Cloudy (Clear); Urine Urobilinogen 4 mg/dl (Normal)
[2022-04-22 07:06] LABS: White Blood Cells 0-5 SEEN /hpf (0-5)
[2022-04-22 07:07] LABS: Internal QC Validated? YES +Cl - CLEAR BKGD; Pregnancy, Serum, hCG Quali. NEGATIVE Negative
[2022-04-22 07:07] LABS: Bacteria 4+ /hpf (None Seen); Mucous, Urine 2+ /hpf (<or=2+); Squamous Epithelial Cells - UA 25-50 SEEN /hpf (5-10)
[2022-04-22 07:23] LABS: Lactic Acid 1.2 mmol/L (0.4-1.9)
[2022-04-22 09:35] VITALS: BP 124/66; PULSE 71; RESP 15; O2SAT 99
== END 2022-04-22 09:36 | disposition home or self-care (01) ==
PROVIDERS: Emergency Medicine; Emergency Provider Emergency Medicine; Visit Provider Emergency Medicine
DX: R10.11 Right upper quadrant pain (principal); Z98.84 Bariatric surgery status; J45.909 Unspecified asthma, uncomplicated; Z79.899 Other long term (current) drug therapy; K21.9 Gastro-esophageal reflux disease without esophagitis; R10.32 Left lower quadrant pain
CPT/HCPCS: 74177; 80053; 81001; 83605; 83690; 84703; 85025; 99283; J7030; Q9967; A4216